=== PATIENT | male | born 1950 | race Caucasian/White ===

== ENCOUNTER 2021-01-03 08:49 | Inpatient (IN) | payer OTHER ==
[~2021-01-03] VITALS: Ht 170.2 cm; Wt 63.6 kg
[~2021-01-03 08:49] MED LIST: AMLO-489 PO; ASPI81CH59 PO; FLUT1AER3 IN; NAPR220C PO; ZOLP10TA6 PO
[2021-01-03] MEDS ORDERED: ceFAZolin 1GM/50ML 100 ML IV ONE (09:06)
[2021-01-03] MEDS: BUPIVACAINE 0.25% INJ 50ML VIAL ONE ×2 (11:12→14:10)
[2021-01-03] MEDS: BACITRACIN INJ 50000 UNIT VIAL ONE ×2 (11:13→14:00)
[2021-01-03] MEDS ORDERED: VANCOMYCIN HCL 1000 MG VL ONE (11:14)
[2021-01-03] MEDS ORDERED: KETOROLAC TROMETH 30 MG/ML 1ML VIAL ONE (11:17)
[2021-01-03] MEDS ORDERED: MORPHINE SULF(PF) 0.5MG/ML 10ML VIAL ONE (11:17)
[2021-01-03] MEDS ORDERED: TRANEXAMIC ACID 20 ML ONE (11:30)
[2021-01-03] MEDS ORDERED: MIDAZOLAM HCL 1MG/1ML-2 ML VIAL ONE (11:31)
[2021-01-03] MEDS ORDERED: MEPERIDINE HCL (50 MG/ML) 1 ML VIAL ONE (11:31)
[2021-01-03] MEDS ORDERED: fentaNYL CITRATE 100 MCG/2 ML VL ONE ×2 (11:31→13:05)
[2021-01-03] MEDS ORDERED: fentaNYL CITRATE 5 ML ONE (11:31)
[2021-01-03] MEDS ORDERED: ETOMIDATE (2MG/ML) 20ML VIAL IV ONE (12:13)
[2021-01-03] MEDS ORDERED: DexAMETHasone SOD PHOS 10MG/1ML VIAL INJ ONE (12:13)
[2021-01-03] MEDS ORDERED: MIDAZOLAM HCL 1MG/1ML-2 ML VIAL IV PRN (12:30)
[2021-01-03] MEDS ORDERED: HYDROmorphone HCL 2 MG/ML VL IV PRN ×2 (12:30→14:15)
[2021-01-03] MEDS ORDERED: LABETALOL HCL 5 MG/ML 4ML SYRINGE IV PRN (12:30)
[2021-01-03] MEDS ORDERED: MORPHINE SULFATE 4 MG/ML SYR/VIAL IV PRN (12:30)
[2021-01-03] MEDS ORDERED: ONDANSETRON HCL 4 MG/2 ML VIAL IV PRN ×2 (12:30→14:15)
[2021-01-03] MEDS ORDERED: ONDANSETRON HCL 4 MG/2 ML VIAL ONE (12:50)
[2021-01-03] MEDS ORDERED: NITROGLYCERIN 0.4 MG SL TAB SL PRN ×3 (14:15→18:00)
[2021-01-03] MEDS ORDERED: HYDROcodone-ACET 5/325MG TAB PO PRN (14:15)
[2021-01-03] MEDS ORDERED: HYDROcodone-ACET 10/325MG TAB PO PRN (14:15)
[2021-01-03] MEDS ORDERED: MORPHINE SULF INJ 2 MG/ML SYRINGE 1ML IV PRN ×3 (14:15→18:00)
[2021-01-03] MEDS: LACTATED RINGER'S 1,000 ML IV SCH (14:30)
[2021-01-03] MEDS: ePHEDrine SULFATE 50 MG/ML AMP IV PRN ×2 (16:32→17:47)
[2021-01-03] MEDS ORDERED: HYDROCORTISONE SOD SUCC 100 MG/2ML INJ VIAL IV ONE (17:15)
[2021-01-03] MEDS: NOREPINEPHRINE 8 MG/250ML KIT 250 ML IV SCH (18:27)
[2021-01-03] MEDS: ceFAZolin 1GM/50ML 50 ML IV SCH ×2 (18:50→22:47)
[2021-01-03 20:15] VITALS: BP 122/71
[2021-01-03] MEDS: DOCUSATE SOD 100 MG CAP PO SCH (22:48)
[2021-01-03 23:15] VITALS: BP 114/61
[2021-01-03 23:30] VITALS: BP 112/56
[2021-01-03 23:45] VITALS: BP 105/53
[2021-01-04] VITALS (53 sets, daily range): BP systolic 101–157; BP diastolic 42–91
[2021-01-04] MEDS: LACTATED RINGER'S 1,000 ML IV SCH ×2 (01:25→09:05)
[2021-01-04] MEDS: ceFAZolin 1GM/50ML 50 ML IV SCH (02:34)
[2021-01-04 04:01] LABS: Hematocrit 40.4 % (41.0-53.0); Hemoglobin 13.7 g/dL (13.5-17.5)
[2021-01-04 04:19] LABS: BUN/Creatinine Ratio 13.3; Potassium 5.3 mmol/L (3.5-5.1)
[2021-01-04] MEDS: NOREPINEPHRINE 8 MG/250ML KIT 250 ML IV SCH (08:58)
[2021-01-04] MEDS: DOCUSATE SOD 100 MG CAP PO SCH (09:41)
== END 2021-01-04 14:20 | disposition home or self-care (01) | DRG 483 ==
LOC: SUR 08:49 → EDSTATUS 10:00 → EDSEX 10:00 → OVERFLOW 14:11 → ICU WEST 21:53
PROVIDERS: ADMIT Orthopaedic Surgery Sports Medicine; ATTEND Orthopaedic Surgery Sports Medicine
PROC: 0RRK00Z Replacement of Left Shoulder Joint with Reverse Ball and Socket Synthetic Substitute, Open Approach (ICD-10-PCS; principal; 2021-01-03 11:39)
DX: M75.102 Unspecified rotator cuff tear or rupture of left shoulder, not specified as traumatic (principal); Z20.822 Contact with and (suspected) exposure to COVID-19; I12.9 Hypertensive chronic kidney disease with stage 1 through stage 4 chronic kidney disease, or unspecified chronic kidney disease; J44.9 Chronic obstructive pulmonary disease, unspecified; G89.29 Other chronic pain; M13.812 Other specified arthritis, left shoulder; N18.30 Chronic kidney disease, stage 3 unspecified; Z98.1 Arthrodesis status; Z87.891 Personal history of nicotine dependence; Z82.49 Family history of ischemic heart disease and other diseases of the circulatory system; Z79.899 Other long term (current) drug therapy; I95.9 Hypotension, unspecified
CPT/HCPCS: 36415; 73020; 80048; 85014; 85018; 86850; 86870; 86900; 86901; 87081; G0378; J0690; J1100; J1885; J2250; J2405; J3490

== ENCOUNTER 2025-04-01 12:45 | Inpatient (IN) | payer OTHER ==
[2025-03-31 23:21] VITALS: PULSE 94; RESP 18; O2SAT 98
[~2025-04-01] VITALS: Ht 170.2 cm; Wt 63.0 kg
[~2025-04-01 12:45] MED LIST changes: -AMLO-489 PO; +AMLO1TAB22 PO
[2025-04-01] MEDS: FUROSEMIDE 40 MG/4 ML VIAL IV ONE (13:00)
--- NOTE | 2025-04-01 13:35 | DVH ---
AP portable chest CLINICAL INDICATION: sob Comparison: 04/01/2025 FINDINGS: Heart size is normal. No infiltrates or effusions. No bony thoracic abnormalities. IMPRESSION: 1. No acute cardiopulmonary pathology
[2025-04-01] MEDS: methylPREDNISolone SOD SUCC 125 MG/2 ML VL IV ONE (13:38)
--- NOTE | 2025-04-01 13:38 | ED.PDOC ---
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 I spoke with the patient's auction clerk, who felt the patient required hospitalization due to oxygen saturation that was in the 70s on room air at his office today. Pt states has been increasingly short of breath for the past month, and uses 3 L of home O2. He also notes productive cough. Pt now in the ED, presents pale in complexion and had vitals checked with noted 02 sat in the 60's on room air and pt was placed on 3 L via nc. Pt also has noted BP of 94/59, RR 24 but otherwise temp is 98.0F and heart rate of 74. Pt in the ED, states he is having cough with yellow phlegm and has been shortness of breath while ambulating very short distances at home home. Pt also notes lower extremity and hand edema. Pt denies chest pain, fever, or sick contacts. Pt denies any other symptoms at this time. Chief Complaint: Shortness of Breath Time Seen by MD: 13:00 Reviewed notes: Medications, Allergies Information Source: Patient Mode of Arrival: Ambulatory Past Medical History PAST MEDICAL HISTORY: CHF, COPD, HTN Surgical History (Other): Cervical spine and pelvis surgery Family History Family History: Reviewed,noncontributory to illness Social History Smoker: Cigarettes Alcohol: Denies ETOH Use Drugs: Denies Drug Use Lives In: Home Constitutional: denies: chills, diaphoresis, fatigue, fever, malaise, sweats, weakness, others EENTM: denies: blurred vision, double vision, ear bleeding, ear discharge, ear drainage, ear pain, ear ringing, eye pain, eye redness, hearing loss, mouth pain, mouth swelling, nasal discharge, nose bleeding, nose congestion, nose pain, photophobia, tearing, throat pain, throat swelling, voice changes, others Respiratory: reports: cough, shortness of breath, SOB with excertion; denies: hemoptysis, orthopnea, SOB at rest, stridor, wheezing, others Cardiovascular: denies: chest pain, dizzy spells, diaphoresis, Dyspnea on exertion, edema, irregular heart beat, left arm pain, lightheadedness, palpitations, PND, syncope, others Gastrointestinal: denies: abdomen distended, abdominal pain, blood streaked bowels, constipated, diarrhea, dysphagia, difficulty swallowing, hematemesis, melena, nausea, poor appetite, poor fluid intake, rectal bleeding, rectal pain, vomiting, others Genitourinary: denies: burning, dysuria, flank pain, frequency, hematuria, incontinence, penile discharge, penile sore, pain, testicle pain, testicle swell ing, urgency, others Neurological: denies: dizziness, fainting, headache, left sided numbness, left sided weakness, numbness, paresthesia, pre-existing deficit, right sided numbness, right sided weakness, seizure, speech problems, tingling, tremors, weakness, others Musculoskeletal: denies: back pain, gout, joint pain, joint swelling, muscle pain, muscle stiffness, neck pain, others Integumetry: denies: bruises, change in color, change in hair/nails, dryness, laceration, lesions, lumps, rash, wounds, others Allergic/Immunocompromised: denies: Difficulty Healing, Frequent Infections, Hives, Itching, others Hematologic/Lymphatic: denies: anemia, blood clots, easy bleeding, easy bruising, swollen glands, others Endocrine: denies: excessive hunger, excessive sweating, excessive thirst, excessive urination, flushing, intolerance to cold, intolerance to heat, unexplained weight gain, unexplained weight loss, others Psychiatric: denies: anxiety, bipolar disorder, depression, hopeless, panic disorder, schizophrenia, sleepless, suicidal, others All Other Systems: Reviewed and Negative Physical Exam General Appearance: Mild Distress HEENT: Other (Pupils and face symmetric. dry mucous membranes.) Neck: Full Range of Motion, Normal Inspection Respiratory: No Accessory Muscle Use, Respiratory Distress (Mild), Rhonchi, Wheezing, Other (Productive sounding cough) Cardiovascular: No JVD, Regular Rate/Rhythm Breast Exam: Deferred Gastrointestinal: Non Tender, Soft Genitalia: Deferred Pelvic: Deferred Rectal: Deferred Extremities: Normal range of motion, Non-tender, Pedal edema Neurologic: Alert (Oriented x4), Normal Affect, Normal Mood, Other (No gross focal deficit) Cerebellar Function: NOT DONE Reflexes: NOT DONE Skin: Dry, Pallor, Warm Lymphatic: NOT DONE EKG EKG : Comments Sinus rhythm, rate 69, normal MT and QRS intervals, QTC 502, supraventricular bigeminy, possible old anteroseptal infarct, anteroseptal and lateral T-wave inversion with other nonspecific T change Was a procedure done? Was a procedure done?: No Differential Dx Differential Diagnosis: Bronchitis, CHF, COPD, Myocardial infarction, Pneumonia, Pulmonary Embolism, Respiratory Distress, URI X-Ray, Labs, Meds, VS Vital Signs Date Time Temp Pulse Resp B/P (MAP) Pulse Ox O2 Delivery O2 Flow Rate FiO2 04/01/25 18:00 80 15 112/77 (89) 90 04/01/25 16:00 76 04/01/25 16:00 76 17 110/69 (83) 90 04/01/25 14:25 74 17 96 Simple Mask* 8 60 04/01/25 14:00 70 11 111/72 (85) 99 04/01/25 13:03 69 04/01/25 12:49 98.0 74 24 94/59 62 98.0 Lab Test 04/01/25 16:43 04/01/25 14:57 04/01/25 14:01 04/01/25 13:47 Range/Units Troponin I High Sensitivity 24 27 27 </=54 ng/L Urine Color Yellow Yellow Urine Clarity Clear Clear Urine pH 5.5 5.0-9.0 Urine Specific [place] 1.020 1.001-1.035 Urine Protein Trace H Negative Urine Ketones Negative Negative Urine Blood Negative Negative /uL Urine Nitrite Negative Negative Urine Bilirubin Negative Negative Urine Urobilinogen Normal Negative mg/dL Urine Leukocyte Esterase 1+ Negative /uL Urine RBC 2 0 - 3 /hpf Urine Microscopic WBC 7 H 0-3 /HPF Urine Squamous Epithelial Cells None seen <5 /hpf Urine Bacteria Few H None Seen /hpf Urine Mucus Few None Seen Urine Glucose Normal Normal mg/dL White Blood Count 8.0 4.4-10.8 10^3/uL Red Blood Count 4.97 4.5-5.90 10^6/uL Hemoglobin 15.0 13.5-17.5 g/dL Hematocrit 45.5 41.0-53.0 % Mean Corpuscular Volume 91.4 80.0-100.0 fL Mean Corpuscular Hemoglobin 30.1 28.0-32.0 pg Mean Corpuscular Hemoglobin Concent 32.9 32.0-36.0 g/dL Red Cell Distribution Width 17.4 H 11.8-14.3 % Platelet Count 301 140-450 10^3/uL Mean Platelet Volume 7.9 6.9-10.8 fL Neutrophils (%) (Auto) 71.0 37.0-80.0 % Lymphocytes (%) (Auto) 15.1 10.0-50.0 % Monocytes (%) (Auto) 11.2 0.0-12.0 % Eosinophils (%) (Auto) 1.2 0.0-7.0 % Basophils (%) (Auto) 1.5 0.0-2.0 % Neutrophils # (Auto) 5.7 1.6-8.6 10 ^3/uL Lymphocytes # (Auto) 1.2 0.4-5.4 10 ^3/uL Monocytes # (Auto) 0.9 0-1.3 10 ^3/uL Eosinophils # (Auto) 0.1 0-0.8 10 ^3/uL Basophils # (Auto) 0.1 0-0.2 10 ^3/uL Nucleated Red Blood Cells 0.2 % Sodium Level 142 136-145 mmol/L Potassium Level 5.4 H 3.5-5.1 mmol/L Chloride Level 107 98-107 mmol/L Carbon Dioxide Level 28 20-31 mmol/L Anion Gap 7 5-15 Blood Urea Nitrogen 36 H 9-23 mg/dL Creatinine 1.72 H 0.700-1.30 mg/dL Glomerular Filtration Rate Calc 41 >90 mL/min BUN/Creatinine Ratio 20.9 H 10.0-20.0 Serum Glucose 87 74-106 mg/dL Calcium Level 8.9 8.7-10.4 mg/dL B-Type Natriuretic Peptide 2313.81 0-100 pg/mL Current Medications Medications (Trade) Dose Ordered Sig/Stanley Route Start Time Stop Time Status Last Admin Albuterol (Ventolin Medneb) 5 mg ONCE ONCE NEB 04/01/25 13:00 04/01/25 13:01 DC 04/01/25 14:19 Ipratropium [place] (Atrovent Medneb) 0.5 mg ONCE ONCE NEB 04/01/25 13:00 04/01/25 13:01 DC 04/01/25 14:19 Methylprednisolone Sodium Succinate (Solu Medrol) 125 mg ONCE ONCE IV 04/01/25 13:00 04/01/25 13:01 DC 04/01/25 13:38 Zirconium Oxide (Lokelma) 10 gm ONCE ONCE PO 04/01/25 15:00 04/01/25 15:01 DC 04/01/25 15:[address] [address] Ph: [phone] DIAGNOSTIC IMAGING Diagnostic Imaging Report : [id number] Signed PATIENT: ZACK OSEGUERA ACCT: [id number] UNIT: [id number] : 1950 LOC: ER ROOM / BED: / AGE / SEX: 74 / M ADM STATUS: REG ER SERVICE 1254 ORDERING PHYSICIAN: SUZANNE MASSEY MD PROCEDURE(s): CXRP - CHEST PORTABLE REASON: sob ORDER NUMBER(s): [id number], ACCESSION NUMBER(s): [id number] AP portable chest CLINICAL INDICATION: sob Comparison: 04/01/2025 FINDINGS: Heart size is normal. No infiltrates or effusions. No bony thoracic abnormalities. IMPRESSION: 1. No acute cardiopulmonary pathology ATED BY: OSMANY MORALES MD DICTATED DATE/TIME: 04/01/25 133 SIGNED BY: OSMANY MORALES MD SIGNED DATE/TIME: 04/01/25 133 CC: X-Ray, Labs, Meds, VS Comment 74-year-old male with oxygen-dependent COPD, CHF and hypertension referred by auction clerk for hospital admission due to shortness of breath and hypoxia Vitals remarkable for respiratory rate 24, BP 94/59, oxygen saturation 62% on room air, profoundly hypoxic Exam remarkable for bilateral rhonchi and wheezes and mild respiratory distress Rhythm strip independently interpreted by me: Sinus rhythm, rate 69 with supraventricular bigeminy Chest x-ray IMPRESSION: 1. No acute cardiopulmonary pathology CBC unremarkable, basic metabolic panel remarkable for potassium 5.4, BUN 36, creatinine 1.72, BNP 2313.81, troponin negative Patient treated with the following in the ED: Albuterol 5 mg/Atrovent 0.5 mg nebulized, Solu-Medrol 125 mg IV, Lasix 40 mg IV, Lokelma 10 g p.o. On re-evaluation, patient's respiratory status has improved, and he is not in respiratory distress. He is saturating 96% on 8 L mask. Plan is to admit the patient for respiratory support, pulmonology evaluation and electrolyte correction. Time of 1ST Reevaluation: 15:02 Reevaluation 1ST: Improved Patient Education/Counseling: Diagnosis, Treatment Family Education/Counseling: No Family Present SEPSIS Sepsis Screen Date sepsis recognized/suspect: Apr 01, 2025 Time Sepsis recognized/suspect: 1251 Recent Procedure: No On Antibiotic Therapy: No Respiratory Rate >20: Yes Heart Rate >90: No Temp<36 C (96.8 F) or >38.3 C: No SBP <90 or MAP <65 mmHG: No New Acute Mental Status Change: No Is the patient on CPAP, BIPAP,: No SEPSIS EXCLUSION NOTE: Sepsis Exclusion Note: Patient presents with SIRS criteria, but the SIRS response is attributed to [ dyspnea/COPD exacerbation ], not a suspected infection. Sepsis bundle is not initiated at this time, due to this reason. Further management will focus on the treatment of the above condition (s). Physician Orders Chest Portable (04/01/25 12:54) Electrocardigram (04/01/25 12:54) 2 Large Bore Ivs (20mg Or Larg (04/01/25 12:58) Vital Signs Date Time Temp Pulse Resp B/P (MAP) Pulse Ox O2 Delivery O2 Flow Rate FiO2 04/01/25 18:00 80 15 112/77 (89) 90 04/01/25 16:00 76 04/01/25 16:00 76 17 110/69 (83) 90 04/01/25 14:25 74 17 96 Simple Mask* 8 60 04/01/25 14:00 70 11 111/72 (85) 99 04/01/25 13:03 69 04/01/25 12:49 98.0 74 24 94/59 62 98.0 Laboratory Tests Test 04/01/25 13:47 White Blood Count 8.0 10^3/uL (4.4-10.8) Medications Medications Dose Ordered Sig/Stanley Route Start Time Stop Time Status Last Admin Dose Admin Albuterol 5 mg ONCE ONCE NEB 04/01/25 13:00 04/01/25 13:01 DC 04/01/25 14:19 Ipratropium [place] 0.5 mg ONCE ONCE NEB 04/01/25 13:00 04/01/25 13:01 DC 04/01/25 14:19 Methylprednisolone Sodium Succinate 125 mg ONCE ONCE IV 04/01/25 13:00 04/01/25 13:01 DC 04/01/25 13:38 Zirconium Oxide 10 gm ONCE ONCE PO 04/01/25 15:00 04/01/25 15:01 DC 04/01/25 15:16 Departure 1 Departure Time of Disposition: 15:02 Impression: Primary Impression: Acute hypoxic respiratory failure Additional Impressions: COPD with acute exacerbation CHF exacerbation Qualified Codes: I50.9 - Heart failure, unspecified Hyperkalemia Disposition: ADMITTED INPATIENT Admit to: Tele Condition: Guarded Critical Care Note Critical Care Time?: Yes (45 min-critical care time only) Critical care comment: Critical care time including multiple bedside re-evaluations, review of lab and imaging studies, and discussion of the case with the admitting provider. Patient is high risk for respiratory, hemodynamic and/or metabolic decompensation. Stability Stability form required: No Heart Score Heart Score: Heart Score Response (Comments) Value History N/A 0 EKG N/A 0 Age N/A 0 Risk Factors N/A 0 Troponin N/A 0 Total 0 I personally scribed for SUZANNE MASSEY MD ([email or web address]) on 04/01/25 at 13:37. Electronically submitted by Luiz Sloan ([email or web address]). I personally scribed for SUZANNE MASSEY MD ([email or web address]) on 04/01/25 at 13:40. Electronically submitted by Luiz Sloan ([email or web address]). SUZANNE MASSEY MD Apr 01, 2025 13:37
[2025-04-01 14:17] LABS: Hematocrit 45.5 % (41.0-53.0); Hemoglobin 15.0 g/dL (13.5-17.5); Mean Corpuscular Hemoglobin 30.1 pg (28.0-32.0); Mean Corpuscular Volume 91.4 fL (80.0-100.0); Nucleated Red Blood Cells % 0.2 %
[2025-04-01] MEDS: ALBUTEROL SULF 2.5 MG/0.5ML(0.5%) NEB SOLN NEB ONE (14:19)
[2025-04-01] MEDS: IPRATROPIUM BROM 0.5 MG/2.5ML INH SOL NEB ONE (14:19)
[2025-04-01 14:20] LABS: Urine Protein, UAD TRACE (Negative)
[2025-04-01 14:24] LABS: Chloride 107 mmol/L (98-107); Sodium 142 mmol/L (136-145)
[2025-04-01 14:25] VITALS: PULSE 74; RESP 17; O2SAT 96
[2025-04-01 14:25] LABS: Anion Gap 7 (5-15); Calcium 8.9 mg/dL (8.7-10.4); Carbon Dioxide 28 mmol/L (20-31); Potassium 5.4 mmol/L (3.5-5.1)
[2025-04-01 14:30] LABS: BUN/Creatinine Ratio 20.9 (10.0-20.0); Glucose 87 mg/dL (74-106)
[2025-04-01 14:31] LABS: Blood Urea Nitrogen 36 mg/dL (9-23)
[2025-04-01] MEDS: SODIUM ZIRCONIUM CYCL 10 GM PAK PO ONE (15:16)
[2025-04-01 19:30] VITALS: PULSE 87; RESP 18; O2SAT 95
[2025-04-01] MEDS ORDERED: MORPHINE SULFATE INJ 2 MG/ml SYRG IV PRN (21:00)
[2025-04-01] MEDS ORDERED: ONDANSETRON HCL 4 MG/2 ML VIAL IV PRN (21:00)
[2025-04-01] MEDS ORDERED: HYDROcodone-ACET 5/325MG TAB PO PRN (21:00)
[2025-04-01] MEDS ORDERED: NITROGLYCERIN 0.4 MG SL TAB SL PRN (21:00)
[2025-04-01] MEDS ORDERED: ACETAMINOPHEN 325 MG TAB PO PRN (21:00)
[2025-04-01 21:25] VITALS: BP 102/60; PULSE 87; RESP 18; TEMP 97.9; O2SAT 92
[2025-04-01 21:25] LABS: Base Excess -2.6 mmol/L (-2.0-3.0)
[2025-04-01 21:41] LABS: Sodium 141 mmol/L (136-145)
[2025-04-01 21:42] LABS: Anion Gap 10 (5-15); Calcium 8.8 mg/dL (8.7-10.4); Carbon Dioxide 24 mmol/L (20-31)
[2025-04-01 21:47] LABS: BUN/Creatinine Ratio 20.0 (10.0-20.0)
[2025-04-01 21:57] LABS: Blood Urea Nitrogen 33 mg/dL (9-23); Chloride 107 mmol/L (98-107); Glucose 122 mg/dL (74-106); Potassium 5.2 mmol/L (3.5-5.1)
--- NOTE | 2025-04-01 22:03 | DVHINCON2 ---
Date of service: Apr 01, 2025 Referring Physician Sheila Ren NP Reason for Consultation Acute hypoxic respiratory failure and COPD exacerbation. 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 Patient reports he had room air 02 saturations 60-70's. He has not been using his oxygen at 3L [place] for the past 7 months, reports he had a cigarette couple days ago. Per patient, he does not use his oxygen concentrator because he could not afford the electricity bill. Denies any headaches, chest pain, nausea, vomiting, abdominal pain or symptoms. Patient was admitted for further care. Pulmonary consultation is requested for evaluation and management of acute hypoxic respiratory failure and COPD exacerbation. Review of Systems: 14-point review of systems negative unless otherwise noted above. Past Medical History: COPD, hypertension, CHF Past Surgical History: None Medications: Reviewed. Allergies: No known drug allergies. Family History: No family history of premature CAD. No family history of lung disorders. Social History: Former smoker, <1 pack per day. No alcohol or illicit drug use. Allergies: Coded Allergies: NO KNOWN ALLERGIES (Unverified , 12/29/20) Home Meds Active Scripts Ipratropium-Albuterol (Ipratropium [place]/Albut) 1 Sylvia Sylvia, 1 SYLVIA IN TID, #30 ML Prov:KAITY PICKARD MD 04/03/25 Prednisone (Prednisone) 20 Mg Tab, 20 MG PO BID, #10 MG Prov:KAITY PICKARD MD 04/03/25 Cefdinir (Cefdinir) 300 Mg Cap, 1 CAP PO BID, #14 CAP Prov:KAITY PICKARD MD 04/03/25 Reported Medications Famotidine (PEPCID TABLET) 20 Mg Tb, 20 MG PO DAILY, TAB 04/02/25 Trazodone Hcl (Trazodone Hcl) 50 Mg Tab, 0.5 TAB PO QHSP PRN for FOR INSOMNIA 04/02/25 Albuterol Sulfate (Albuterol Sulfate Hfa) 108 Mcg/Act Aer, 2 PUFF INH PRN for SHORTNESS OF BREATH 04/02/25 Aibaihthnvz-Zfvcftjpkibg-Vendu (Trelegy Ellipta 100-62.5-25 Mcg/INH) 1 Aer Aer, 1 AER IN DAILY, AER 12/29/20 Amlodipine Besylate (Amlodipine Besylate) 5 Mg Tab, 1 TAB PO DAILY, #30 TAB 0 Refills 12/29/20 Current Medications Current Medications Medications (Trade) Dose Ordered Sig/Stanley Route PRN Reason Start Time Stop Time Status Last Admin Nitroglycerin (Ntrostat Sublingual) 0.4 mg Q5MINP PRN SL FOR CHEST PAIN 04/01/25 21:00 Morphine Sulfate 2 mg Q30M PRN IV FOR CHEST PAIN 04/01/25 21:00 Furosemide (Lasix Injection) 40 mg DAILY IV 04/02/25 10:00 Ipratropium [place] (Atrovent Medneb) 0.5 mg Q6HR NEB 04/02/25 00:00 Methylprednisolone Sodium Succinate (Solu Medrol) 40 mg BID IV 04/01/25 22:00 Ceftriaxone Sodium 50 ml @ 100 mls/hr DAILY IV 04/01/25 21:42 Ondansetron HCl (Zofran) 4 mg Q6HP PRN IV NAUSEA / VOMITING 04/01/25 21:00 Enoxaparin Sodium (Lovenox) 40 mg DAILY SC 04/02/25 10:00 Acetaminophen/ Hydrocodone Bitart ([place] 5/325MG Tab) 1 tab Q6HPRN PRN PO MODERATE PAIN (4-6 PAIN SCALE) 04/01/25 21:00 Acetaminophen (Tylenol Tablet) 650 mg Q6HPRN PRN PO PAIN SCALE 1-3 OR TEMP>100.4 04/01/25 21:00 Pantoprazole Sodium (Protonix) 40 mg DAILY IV 04/02/25 10:00 Albuterol (Ventolin Medneb) 2.5 mg Q4HPRN PRN NEB SHORTNESS OF BREATH 04/01/25 21:00 Vital Signs Vital Signs Date Time Temp Pulse Resp B/P (MAP) Pulse Ox O2 Delivery O2 Flow Rate FiO2 04/01/25 20:30 97.9 87 16 102/60 (74) 95 97.9 04/01/25 19:30 Simple Mask* 8 60 Physical Exam Gen.: Patient lying in bed in no apparent distress. On supplemental oxygen. Head: Normocephalic, atraumatic. Eyes: EOMI/PERRLA. Ears: Normal hearing. Normal anatomy. Neck/trachea: Trachea midline, supple. Nose: Normal external anatomy. Mouth: Moist mucous membranes. Chest: Decreased air entry bilaterally. No wheezing or rhonchi. Cardiovascular: Positive S1, positive S2. Regular rate and rhythm. Abdomen: Positive bowel sounds in all 4 quadrants. Soft, non-tender, non- distended. : Deferred. Rectal: Deferred. Skin: Warm, dry. Intact. Extremities: 2+ radial pulses bilaterally. No lower extremity edema. Neuro: Awake, alert, oriented x3. No gross motor or sensory deficits. Cranial nerves II through XII intact. Gait not assessed. Labs/Diagnostic Data Labs Test 04/01/25 21:25 04/01/25 21:14 04/01/25 16:43 04/01/25 14:01 Range/Units Sodium Level 141 136-145 mmol/L Potassium Level 5.2 H 3.5-5.1 mmol/L Chloride Level 107 98-107 mmol/L Carbon Dioxide Level 24 20-31 mmol/L Anion Gap 10 5-15 Blood Urea Nitrogen 33 H 9-23 mg/dL Creatinine 1.65 H 0.700-1.30 mg/dL Glomerular Filtration Rate Calc 43 >90 mL/min BUN/Creatinine Ratio 20.0 10.0-20.0 Serum Glucose 122 H 74-106 mg/dL Calcium Level 8.8 8.7-10.4 mg/dL Blood Gas Specimen Type Arterial Blood Gas Sample Site Right radial Blood Gas Patient Temperature 37.0 Arterial Blood Date Drawn [id number] Arterial Blood pH 7.304 L 7.350-7.450 Arterial Blood Partial Pressure CO2 50.2 H 35.0-48.0 mmHg Arterial Blood Partial Pressure O2 76.6 L 83.0-108.0 mmHg Arterial Blood HCO3 24.4 21.0-28.0 mmol/L Arterial Blood Oxygen Saturation 93.8 L 94.0-98.0 % Arterial Blood Base Excess -2.6 L -2.0-3.0 mmol/L Arterial Blood Oxyhemoglobin 91.0 L 94.0-98.0 % Arterial Blood Carboxyhemoglobin 2.3 H 0.5-1.5 % Arterial Blood Methemoglobin 0.7 0.0-1.5 % Rafael Test Modified Blood Gas Total Hemoglobin 15.20 13.5-17.5 g/dL Blood Gas Liter Flow 3.00 Blood Gas Modality Nasal cannula FiO2 % 32.0 Troponin I High Sensitivity 24 </=54 ng/L Urine Color Yellow Yellow Urine Clarity Clear Clear Urine pH 5.5 5.0-9.0 Urine Specific [place] 1.020 1.001-1.035 Urine Protein Trace H Negative Urine Ketones Negative Negative Urine Blood Negative Negative /uL Urine Nitrite Negative Negative Urine Bilirubin Negative Negative Urine Urobilinogen Normal Negative mg/dL Urine Leukocyte Esterase 1+ Negative /uL Urine RBC 2 0 - 3 /hpf Urine Microscopic WBC 7 H 0-3 /HPF Urine Squamous Epithelial Cells None seen <5 /hpf Urine Bacteria Few H None Seen /hpf Urine Mucus Few None Seen Urine Glucose Normal Normal mg/dL Test 04/01/25 13:47 Range/Units White Blood Count 8.0 4.4-10.8 10^3/uL Red Blood Count 4.97 4.5-5.90 10^6/uL Hemoglobin 15.0 13.5-17.5 g/dL Hematocrit 45.5 41.0-53.0 % Mean Corpuscular Volume 91.4 80.0-100.0 fL Mean Corpuscular Hemoglobin 30.1 28.0-32.0 pg Mean Corpuscular Hemoglobin Concent 32.9 32.0-36.0 g/dL Red Cell Distribution Width 17.4 H 11.8-14.3 % Platelet Count 301 140-450 10^3/uL Mean Platelet Volume 7.9 6.9-10.8 fL Neutrophils (%) (Auto) 71.0 37.0-80.0 % Lymphocytes (%) (Auto) 15.1 10.0-50.0 % Monocytes (%) (Auto) 11.2 0.0-12.0 % Eosinophils (%) (Auto) 1.2 0.0-7.0 % Basophils (%) (Auto) 1.5 0.0-2.0 % Neutrophils # (Auto) 5.7 1.6-8.6 10 ^3/uL Lymphocytes # (Auto) 1.2 0.4-5.4 10 ^3/uL Monocytes # (Auto) 0.9 0-1.3 10 ^3/uL Eosinophils # (Auto) 0.1 0-0.8 10 ^3/uL Basophils # (Auto) 0.1 0-0.2 10 ^3/uL Nucleated Red Blood Cells 0.2 % B-Type Natriuretic Peptide 2313.81 0-100 pg/mL Assessment Impression: Acute hypoxic respiratory failure Dependence on supplemental oxygen Acute COPD exacerbation Acute CHF exacerbation Hyperkalemia Hx of nicotine dependence Plan: Supplemental oxygen Titrate to keep O2 sats above 92%. Chest x-ray shows no acute abnormalities. Continue bronchodilators. Continue antibiotics IV steroids Follow up Echocardiogram Follow up Cardiology recommendations. Maintain euvolemia Monitor renal function. Monitor electrolytes. Supplement as necessary. Monitor potassium d/t hyperkalemia - K of 5.4 Monitor ins and outs. DVT prophylaxis. Prognosis: Poor given patient's multiple co-morbidities. Rest of plan per hospitalist and other consultants. Thank you, MARTHA Ren, for allowing me to participate in this patient's care. Further recommendations will depend on the patient's clinical course. Please do not hesitate to contact me if you have any questions or concerns. This medical document was created using an electronic medical record system with [employer] dictation system. Although these documentations are being carefully reviewed, there may still be some phonetic and typographical changes. The errors are purely typographical, due to imperfection on the software program, and do not reflect any compromise in the patient's medical care. Plan discussed with: Patient, Other (RN/MARTHA Ren/) CHRISSY PORTILLO MD Apr 01, 2025 22:03
[2025-04-01] MEDS: cefTRIAXone 1GM/50ML D5W 50 ML IV SCH (22:14)
[2025-04-01] MEDS: methylPREDNISolone SOD SUCC 40 MG/ML VL IV SCH (22:14)
[2025-04-01 23:13] VITALS: PULSE 90; RESP 18; O2SAT 96
[2025-04-01] MEDS: IPRATROPIUM BROM 0.5 MG/2.5ML INH SOL NEB SCH (23:13)
[2025-04-01] MEDS: ALBUTEROL SULF 2.5 MG/0.5ML(0.5%) NEB SOLN NEB PRN (23:13)
[2025-04-01 23:21] VITALS: PULSE 94; RESP 18; O2SAT 98
[2025-04-02] VITALS (18 sets, daily range): BP systolic 115–126; BP diastolic 62–67; PULSE 58–96; RESP 14–18; TEMP 97.9–98; O2SAT 93–100
--- NOTE | 2025-04-02 01:01 | DVHHP2 ---
Admitting Diagnosis: Acute Hypoxic Respiratory Failure, COPD Exacerbation, CHF exacerbation, UTI History of Present Illness History Source: Patient, Family Exam Limitations: No limitations HPI Mr. Vanessa Beckwith is a 74 yo male with known history of CHF, HTN, COPD , previous cigarette smoker who presents with shortness of breath referred from his Pulmonologists office for acute respiratory failure with hypoxia. Reported he had room air 02 saturations 60-70's. Patient reports he has not been using his oxygen at 3L [place] for the past 7 months, reports he had a cigarette couple days ago. Patient reports he does not use his oxygen concentrator because it increased his electricity bill which he could not afford. Patient denies any chest pain, nausea, vomiting, abdominal pain, headaches, dizziness, dysuria, hematuria. Patient admitted for further evaluation and treatment. Home Meds Reported Medications Zolpidem Tartrate (Zolpidem Tartrate) 10 Mg Tab, 1 TAB PO QPM, #30 TAB 0 Refills 12/29/20 Aspirin (Aspirin Low Dose) 81 Mg Chw, 1 TAB PO DAILY, #30 TAB 0 Refills 12/29/20 Naproxen Sodium (Aleve) 220 Mg Cap, 250 MG PO BID, CAP 12/29/20 Dynyowubfpz-Wqiqofecqzax-Qpjkr (Trelegy Ellipta 100-62.5-25 Mcg/INH) 1 Aer Aer, 1 AER IN DAILY, AER 12/29/20 Amlodipine Besylate (Amlodipine Besylate) 5 Mg Tab, 1 TAB PO DAILY, #30 TAB 0 Re fills 12/29/20 Past Medical History Cardiac: CHF, HTN Pulmonary: COPD Smoker: <1 pack per day Alocohol: None Drugs: None Lives with: With family (spouse) Domestic Violence: Neg Review of Systems Constitutional: No symptom reported Ears, Nose, & Throat: No symptom reported Eyes: No symptom reported Pulmonary/Respiratory: Dyspnea, Cough Cardiovascular: No symptom reported Gastrointestinal: No symptom reported Genitourinary: No symptom reported Musculoskeletal: No symptom reported Skin: No symptom reported Psychiatric: No symptom reported Endocrine: No symptom reported Hemotologic/Lymphatic: No symptom reported H&P Exam Vital Signs Vital Signs Date Time Temp Pulse Resp B/P (MAP) Pulse Ox O2 Delivery O2 Flow Rate FiO2 04/02/25 00:17 79 15 106/57 (73) 94 04/01/25 23:13 Nasal Cannula* 4 36 04/01/25 21:25 97.9 97.9 General Appeara: Well developed, Well nourished, Thin Head Exam: Normal inspection Neck Exam: Normal inspection, Non-tender, Normal alignment Eye Exam: bilateral eye Normal inspection, bilateral eye PERRL, bilateral eye EOMI Ear Exam: bilateral ear Auricle normal Nasal Exam: Normal inspection Mouth: Normal Inspection Pulmonary/Respiratory: Normal inspection, Decreased breath sounds, Other (barrel chest) Cardiovascular/Chest: Normal inspection, Regular rate, Normal Rhythm Peripheral Pulses: 2+ dorsalis pedis (R), 2+ dorsalis pedis (L), 2+ Radial (R), 2+ Radial (L) Abdominal Exam: Normal bowel sounds, Soft, No tenderness Rectal Exam: Deferred Back Exam: Normal inspection Male Genital Exam: Not done Tendon/ Neuro: Normal sensation, Normal motor function 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 Exam: Normal hearing, Normal speech, PERRL Neuro/Mental St: Alert, Oriented Appearance: Appropriate appearance, Appropriate insight Eye contact/ Speech: Cooperative, Good eye contact, Normal speech Thoughts/Psych: Normal thought pattern Skin Exam: Normal inspection, Warm/dry SEPSIS Sepsis Screen Date sepsis recognized/suspect: Apr 01, 2025 Time Sepsis recognized/suspect: 1251 Recent Procedure: No On Antibiotic Therapy: No Respiratory Rate >20: Yes Heart Rate >90: No Temp<36 C (96.8 F) or >38.3 C: No SBP <90 or MAP <65 mmHG: No New Acute Mental Status Change: No Is the patient on CPAP, BIPAP,: No Physician Orders Admit (04/01/25 20:58) *Consult / (04/01/25 20:58) Abg W/ Co-Ox (04/01/25 20:58) * Cardiology Consult (04/01/25 20:58) Echo 2d Mode Cardiac Dop (04/01/25 20:58) Basic Metabolic Panel (04/02/25 05:00) Basic Metabolic Panel (04/03/25 05:00) Basic Metabolic Panel (04/04/25 05:00) Complete Blood Count (04/02/25 05:00) Complete Blood Count (04/03/25 05:00) Complete Blood Count (04/04/25 05:00) Urine Bacterial Culture (04/01/25 20:58) Nitroglycerin Sublingual (Ntrostat Subli (04/01/25 21:00) Morphine Sulfate Injection (04/01/25 21:00) Stat Ekg For Chest Pain (04/01/25 20:58) Notify Of Changes From Base (04/01/25 20:58) Server Developer For 24 Hours (04/01/25 20:58) Emergency Dysrhythmia Protocol (04/01/25 20:58) Rhythm Strips Once Every Shift (04/01/25 20:58) Oxygen By Nasal Cannula (04/01/25 20:58) Furosemide Injection (Lasix Injection) (04/02/25 10:00) Ipratropium Medneb (Atrovent Medneb) (04/02/25 00:00) Methylprednisolone Sod Succ (Solu Medrol (04/01/25 22:00) Ondansetron Hcl (Zofran) (04/01/25 21:00) Enoxaparin Sodium (Lovenox) (04/02/25 10:00) Hydrocodone-Acet 5/325mg Tab ([place] 5/32 (04/01/25 21:00) Acetaminophen Tablet (Tylenol Tablet) (04/01/25 21:00) Pantoprazole (Protonix) (04/02/25 10:00) Albuterol Medneb (Ventolin Medneb) (04/01/25 21:00) Ceftriaxone 1gm/50ml D5w (Rocephin) (04/01/25 21:42) BIPAP (04/01/25 22:51) Abg W/ Co-Ox (04/01/25 06:00) Vital Signs Date Time Temp Pulse Resp B/P (MAP) Pulse Ox O2 Delivery O2 Flow Rate FiO2 04/02/25 00:17 79 15 106/57 (73) 94 04/02/25 00:00 84 04/01/25 23:21 94 18 98 04/01/25 23:13 90 18 96 04/01/25 23:13 96 Nasal Cannula* 4 36 04/01/25 23:13 96 Nasal Cannula 4.0 04/01/25 21:25 97.9 87 18 102/60 92 3.0 32 97.9 04/01/25 20:30 97.9 87 16 102/60 (74) 95 97.9 04/01/25 20:00 69 04/01/25 19:30 87 18 95 Simple Mask* 8 60 04/01/25 18:00 80 15 112/77 (89) 90 Laboratory Tests Test 04/01/25 13:47 White Blood Count 8.0 10^3/uL (4.4-10.8) Medications Medications Dose Ordered Sig/Stanley Route Start Time Stop Time Status Last Admin Dose Admin Albuterol 2.5 mg Q4HPRN PRN NEB 04/01/25 21:00 04/01/25 23:13 2.5 MG Albuterol 5 mg ONCE ONCE NEB 04/01/25 13:00 04/01/25 13:01 DC 04/01/25 14:19 5 MG Ceftriaxone Sodium 50 ml @ 100 mls/hr DAILY IV 04/01/25 21:42 04/01/25 22:14 100 MLS/HR Ipratropium [place] 0.5 mg ONCE ONCE NEB 04/01/25 13:00 04/01/25 13:01 DC 04/01/25 14:19 0.5 MG Ipratropium [place] 0.5 mg Q6HR NEB 04/02/25 00:00 04/01/25 23:13 0.5 MG Methylprednisolone Sodium Succinate 40 mg BID IV 04/01/25 22:00 04/01/25 22:14 40 MG Methylprednisolone Sodium Succinate 125 mg ONCE ONCE IV 04/01/25 13:00 04/01/25 13:01 DC 04/01/25 13:38 125 MG Zirconium Oxide 10 gm ONCE ONCE PO 04/01/25 15:00 04/01/25 15:01 DC 04/01/25 15:16 10 GM Labs/Xrays Labs Test 04/01/25 21:25 04/01/25 21:14 04/01/25 16:43 04/01/25 14:01 Range/Units Sodium Level 141 136-145 mmol/L Potassium Level 5.2 H 3.5-5.1 mmol/L Chloride Level 107 98-107 mmol/L Carbon Dioxide Level 24 20-31 mmol/L Anion Gap 10 5-15 Blood Urea Nitrogen 33 H 9-23 mg/dL Creatinine 1.65 H 0.700-1.30 mg/dL Glomerular Filtration Rate Calc 43 >90 mL/min BUN/Creatinine Ratio 20.0 10.0-20.0 Serum Glucose 122 H 74-106 mg/dL Calcium Level 8.8 8.7-10.4 mg/dL Blood Gas Specimen Type Arterial Blood Gas Sample Site Right radial Blood Gas Patient Temperature 37.0 Arterial Blood Date Drawn [id number] Arterial Blood pH 7.304 L 7.350-7.450 Arterial Blood Partial Pressure CO2 50.2 H 35.0-48.0 mmHg Arterial Blood Partial Pressure O2 76.6 L 83.0-108.0 mmHg Arterial Blood HCO3 24.4 21.0-28.0 mmol/L Arterial Blood Oxygen Saturation 93.8 L 94.0-98.0 % Arterial Blood Base Excess -2.6 L -2.0-3.0 mmol/L Arterial Blood Oxyhemoglobin 91.0 L 94.0-98.0 % Arterial Blood Carboxyhemoglobin 2.3 H 0.5-1.5 % Arterial Blood Methemoglobin 0.7 0.0-1.5 % Rafael Test Modified Blood Gas Total Hemoglobin 15.20 13.5-17.5 g/dL Blood Gas Liter Flow 3.00 Blood Gas Modality Nasal cannula FiO2 % 32.0 Troponin I High Sensitivity 24 </=54 ng/L Urine Color Yellow Yellow Urine Clarity Clear Clear Urine pH 5.5 5.0-9.0 Urine Specific [place] 1.020 1.001-1.035 Urine Protein Trace H Negative Urine Ketones Negative Negative Urine Blood Negative Negative /uL Urine Nitrite Negative Negative Urine Bilirubin Negative Negative Urine Urobilinogen Normal Negative mg/dL Urine Leukocyte Esterase 1+ Negative /uL Urine RBC 2 0 - 3 /hpf Urine Microscopic WBC 7 H 0-3 /HPF Urine Squamous Epithelial Cells None seen <5 /hpf Urine Bacteria Few H None Seen /hpf Urine Mucus Few None Seen Urine Glucose Normal Normal mg/dL Test 04/01/25 13:47 Range/Units White Blood Count 8.0 4.4-10.8 10^3/uL Red Blood Count 4.97 4.5-5.90 10^6/uL Hemoglobin 15.0 13.5-17.5 g/dL Hematocrit 45.5 41.0-53.0 % Mean Corpuscular Volume 91.4 80.0-100.0 fL Mean Corpuscular Hemoglobin 30.1 28.0-32.0 pg Mean Corpuscular Hemoglobin Concent 32.9 32.0-36.0 g/dL Red Cell Distribution Width 17.4 H 11.8-14.3 % Platelet Count 301 140-450 10^3/uL Mean Platelet Volume 7.9 6.9-10.8 fL Neutrophils (%) (Auto) 71.0 37.0-80.0 % Lymphocytes (%) (Auto) 15.1 10.0-50.0 % Monocytes (%) (Auto) 11.2 0.0-12.0 % Eosinophils (%) (Auto) 1.2 0.0-7.0 % Basophils (%) (Auto) 1.5 0.0-2.0 % Neutrophils # (Auto) 5.7 1.6-8.6 10 ^3/uL Lymphocytes # (Auto) 1.2 0.4-5.4 10 ^3/uL Monocytes # (Auto) 0.9 0-1.3 10 ^3/uL Eosinophils # (Auto) 0.1 0-0.8 10 ^3/uL Basophils # (Auto) 0.1 0-0.2 10 ^3/uL Nucleated Red Blood Cells 0.2 % B-Type Natriuretic Peptide 2313.81 0-100 pg/mL Assessment/Plan Problem List: (1) Acute hypoxic respiratory failure (2) COPD with acute exacerbation (3) CHF exacerbation (4) Hyperkalemia Plan This is 74 yo male with known history of CHF, HTN, COPD who presents with shortness of breath. Patient found to have 1. Acute hypoxic respiratory failure 2. CHF exacerbation 3. COPD exacerbation 4. Hyperkalemia 5. Acute Cystitis 6. Hypertension Plan Admit JOHN Pulmonology consultation, Bronchodilators, IV steroids, ABG Cardiology consultation , 2D echocardiogram, IV diuresis Monitor BMP IV antibiotics, urine culture Supplemental oxygen as needed Discussed all above with patient and patient daughter at bedside. Both verbalized agreement and understanding of care plan. All questions were answered. Plan discussed with: Patient, Other Code Visit Code Visit Total Time (mins): 45 Additional Comments Additional Comments Additional Comments Patient's chart is reviewed and discussed with the nurse practitioner. Patient is seen evaluated and admitted by ADA ACCOMMODATION CONSULTANT this morning. I agree with the her evaluation, documentation, assessment and care plan as outlined. Patient is seen and evaluated by me earlier today. BONNIE ONEIL NATURAL G[employer] SHOT[employer] DRILLER Apr 02, 2025 01:01 KAITY PICKARD MD Apr 02, 2025 21:18
[2025-04-02 05:55] LABS: Hematocrit 48.6 % (41.0-53.0); Hemoglobin 16.1 g/dL (13.5-17.5); Mean Corpuscular Hemoglobin 30.0 pg (28.0-32.0); Mean Corpuscular Volume 90.3 fL (80.0-100.0); Nucleated Red Blood Cells % 0.6 %
[2025-04-02 06:02] LABS: Potassium 5.0 mmol/L (3.5-5.1); Sodium 142 mmol/L (136-145)
[2025-04-02 06:03] LABS: Anion Gap 10 (5-15); Calcium 9.0 mg/dL (8.7-10.4); Carbon Dioxide 24 mmol/L (20-31)
[2025-04-02 06:08] LABS: BUN/Creatinine Ratio 19.6 (10.0-20.0)
[2025-04-02 06:09] LABS: Blood Urea Nitrogen 36 mg/dL (9-23); Chloride 108 mmol/L (98-107); Glucose 168 mg/dL (74-106)
[2025-04-02 08:13] LABS: Base Excess -2.4 mmol/L (-2.0-3.0)
[2025-04-02] MEDS: PANTOPRAZOLE 40 MG/10 ML VIAL INJ IV SCH (09:34)
[2025-04-02] MEDS: FUROSEMIDE 40 MG/4 ML VIAL IV SCH (09:35)
[2025-04-02] MEDS: ENOXAPARIN SOD 40 MG/0.4 ML SYRINGE SC SCH (09:36)
--- NOTE | 2025-04-02 12:32 | DVHPN2 ---
Progress Note - Dictate Date Seen: Apr 02, 2025 Has the PT tested + for MRSA If YES, has PT been informed?: No Medical Necessity Reason Pt with a Central, PICC or Fol: No vital signs Vital Sign Date Time Temp Pulse Resp B/P (MAP) Pulse Ox O2 Delivery O2 Flow Rate FiO2 04/02/25 12:06 76 17 97 04/02/25 12:02 Nasal Cannula* 2 28 04/02/25 09:35 122/55 04/02/25 06:00 98.0 98.0 Total Intake and Output 04/01/25 04/01/25 04/02/25 15:00 23:00 07:00 Intake Total 100 ml Balance 100 ml medications Current Medications Medications Dose Ordered Sig/Stanley Route Start Time Stop Time Status Last Admin Dose Admin Nitroglycerin 0.4 mg Q5MINP PRN SL 04/01/25 21:00 Morphine Sulfate 2 mg Q30M PRN IV 04/01/25 21:00 Furosemide 40 mg DAILY IV 04/02/25 10:00 04/02/25 09:35 40 MG Ipratropium [place] 0.5 mg Q6HR NEB 04/02/25 00:00 04/02/25 12:02 0.5 MG Methylprednisolone Sodium Succinate 40 mg BID IV 04/01/25 22:00 04/02/25 09:35 40 MG Ceftriaxone Sodium 50 ml @ 100 mls/hr DAILY IV 04/01/25 21:42 04/02/25 09:34 100 MLS/HR Ondansetron HCl 4 mg Q6HP PRN IV 04/01/25 21:00 Enoxaparin Sodium 40 mg DAILY SC 04/02/25 10:00 04/02/25 09:36 40 MG Acetaminophen/ Hydrocodone Bitart 1 tab Q6HPRN PRN PO 04/01/25 21:00 Acetaminophen 650 mg Q6HPRN PRN PO 04/01/25 21:00 Pantoprazole Sodium 40 mg DAILY IV 04/02/25 10:00 04/02/25 09:34 40 MG Albuterol 2.5 mg Q4HPRN PRN NEB 04/01/25 21:00 04/02/25 12:01 2.5 MG laboratory and microbiology Laboratory Tests 04/02/25 05:12 Test 04/02/25 05:12 Range/Units Serum Glucose 168 H 74-106 mg/dL Assessment/Plan acute ex of copd acute on chronic hypoxemic resp failure smoker emphysema seen in the ER reports improvement vs stable CXR reviewed hyperinflated lungs plan systemic steroids with taper bronchodilators abx supportive care IS dvt proph Plan discussed with: Other (rn) FRANCESCA VIERA MD Apr 02, 2025 12:32
--- NOTE | 2025-04-02 13:25 | DVHSR ---
APPROVED REPORT EXAM: Two-dimensional and M-mode echocardiogram with Doppler and color Doppler. Blood Pressure: 119/63 mmHg INDICATION Heart Failure RISK FACTORS Height: 5'5", Weight: 138 DIMENSIONS LVDd3.9 (3.8-5.7cm)LA (2D)3.9 (1.9-4.0cm)Aortic Root3.0 (2.0-3.7cm) LVDs2.7 (2.5-4.0cm)LA (MM) (1.9-4.0cm)Aortic Cusp Exc1.6 (1.5-2.0cm) EF (%) 56.0 (55-70%)Rt. Atrium5.0 (1.9-4.0cm)Asc. Aorta cm IVSd0.5 (0.7-1.1cm)RV (D)4.8 (1.8-2.4cm) PWd0.6 (0.7-1.1cm) Mitral Valve MitralMitral Stenosis E/A ratio0.02D MVAcm2 Aortic Valve Aortic ValveAortic Stenosis LVOT Diameter2.2 (1.8-2.4cm)Doppler AVAcm2 Tricuspid Valve TR Velocity3.73m/s [id number] Other Information Quality : Technically LimitedRhythm : Technically limited study due to patient position. Conclusion Left ventricle is normal in size Left ventricular systolic function is preserved Ejection fraction is estimated at 60% Right heart is severely dilated Right ventricular systolic pressure is severely depressed There is [id number] tricuspid regurgitation There is moderate to severe pulmonary hypertension estimated at 62 mmHg There is no pericardial effusion
--- NOTE | 2025-04-02 21:27 | DVHPN2 ---
Subjective Admitted overnight for COPD shortness for breath symptoms. Patient is on nasal cannula and requesting to change to face mask given he is a mouth breather. He is seen and evaluated by me earlier today. Changes from previous H/P or p: No Changes Objective Vitals Vital Signs Date Time Temp Pulse Resp B/P (MAP) Pulse Ox O2 Delivery O2 Flow Rate FiO2 04/02/25 20:00 68 04/02/25 20:00 15 100 Simple Mask* 8 60 04/02/25 19:00 113/65 (81) 04/02/25 13:45 98.3 98.3 Intake/Output Intake and Output 04/02/25 07:00 Intake Total 100 ml Balance 100 ml Intake IV Total 100 ml Exam Alert awake oriented to place and person comfortable without any significant cardiopulmonary distress. HEENT neck supple no JVD. Poor dentition. Neck supple no JVD. Heart regular rate and rhythm S1-S2. Lungs fair air movement but degraded breath sounds in the bases. End expiratory wheezing noted in the anterior chest. Abdomen soft nontender positive bowel sounds. Extremities no edema positive pulses. Medications Current Medications Medications Dose Ordered Sig/Stanley Route Start Time Stop Time Status Last Admin Dose Admin Nitroglycerin 0.4 mg Q5MINP PRN SL 04/01/25 21:00 Morphine Sulfate 2 mg Q30M PRN IV 04/01/25 21:00 Furosemide 40 mg DAILY IV 04/02/25 10:00 04/02/25 09:35 40 MG Ipratropium [place] 0.5 mg Q6HR NEB 04/02/25 00:00 04/02/25 17:55 0.5 MG Methylprednisolone Sodium Succinate 40 mg BID IV 04/01/25 22:00 04/02/25 09:35 40 MG Ceftriaxone Sodium 50 ml @ 100 mls/hr DAILY IV 04/01/25 21:42 04/02/25 09:34 100 MLS/HR Ondansetron HCl 4 mg Q6HP PRN IV 04/01/25 21:00 Enoxaparin Sodium 40 mg DAILY SC 04/02/25 10:00 04/02/25 09:36 40 MG Acetaminophen/ Hydrocodone Bitart 1 tab Q6HPRN PRN PO 04/01/25 21:00 Acetaminophen 650 mg Q6HPRN PRN PO 04/01/25 21:00 Pantoprazole Sodium 40 mg DAILY IV 04/02/25 10:00 04/02/25 09:34 40 MG Albuterol 2.5 mg Q4HPRN PRN NEB 04/01/25 21:00 04/02/25 17:55 2.5 MG Laboratory Results Laboratory Tests 04/02/25 05:12 Chemistry Test 04/01/25 21:25 04/02/25 05:12 Calcium Level 8.8 mg/dL (8.7-10.4) 9.0 mg/dL (8.7-10.4) Urinalysis Test 04/01/25 14:01 Urine Color Yellow (Yellow) Urine Clarity Clear (Clear) Urine pH 5.5 (5.0-9.0) Urine Specific [place] 1.020 (1.001-1.035) Urine Protein Trace (Negative) H Urine Ketones Negative (Negative) Urine Blood Negative /uL (Negative) Urine Nitrite Negative (Negative) Urine Bilirubin Negative (Negative) Urine Urobilinogen Normal mg/dL (Negative) Urine Leukocyte Esterase 1+ /uL (Negative) Urine RBC 2 /hpf (0 - 3) Urine Microscopic WBC 7 /HPF (0-3) H Urine Squamous Epithelial Cells None seen /hpf (<5) Urine Bacteria Few /hpf (None Seen) H Urine Mucus Few (None Seen) Urine Glucose Normal mg/dL (Normal) Blood Gas Results Test 04/02/25 08:07 Arterial Blood pH 7.378 (7.350-7.450) FiO2 % 30.0 Microbiology Microbiology Date/Time Source Procedure Growth Status 04/01/25 14:01 Voided Urine Urine Culture - Preliminary Resulted Assessment/Plan Assessment/Plan I will increase his steroids we will add inhaled steroids as well. Change his breathing treatments to q.4 hours while awake. Consider V/Q scan and a D-dimer levels given his COPD with poor activity levels. Otherwise continue rest of supportive care and treatment. Further clinical management per clinical course and recommendations from the consultants. Discussed with the patient and nurse regarding care plan. Plan discussed with: Patient, Other My Orders Orders - KAITY PICKARD MD Procedure Category Date Status Time Albuterol Medneb PHA 04/02/25 Verified (Ventolin Medneb) 22:00 Methylprednisolone PHA 04/02/25 Verified Sod Succ (Solu Medrol 22:00 Problem List: (1) Hypertensive heart disease (2) Hyperkalemia (3) CHF exacerbation (4) COPD with acute exacerbation (5) Acute hypoxic respiratory failure Date of Service: Apr 02, 2025 Billing Provider: KAITY PICKARD MD Common Visit Codes: [id number] INP/OBS CARE(MOD) KAITY PICKARD MD Apr 02, 2025 21:27
[2025-04-02] MEDS: ALBUTEROL SULF 2.5 MG/0.5ML(0.5%) NEB SOLN NEB SCH (22:39)
[2025-04-02] MEDS: BUDESONIDE (INHALATION) 0.5 MG/2 ML NEB NEB SCH (22:39)
[2025-04-02] MEDS: IPRATROPIUM BROM 0.5 MG/2.5ML INH SOL NEB SCH (22:39)
--- NOTE | 2025-04-02 22:55 | DVHINCON2 ---
DATE OF CONSULTATION: 04/02/2025 REFERRING PHYSICIAN: Pedro Castañeda MD CONSULTING PHYSICIAN: John Lozano MD INDICATION: ____. HISTORY OF PRESENT ILLNESS: Mr. Beckwith is a 74-year-old male with history of CVA, hypertension, CHF, tobacco use, who was sent to the hospital by his primary care physician after he was noted to be hypoxic in the office with oxygen saturation in the 60s-70s. Currently admitted with diagnosis of COPD exacerbation and decompensated heart failure. He has some improvement in his symptoms. The patient has not been taking his home Lasix. He denies any chest pain. PAST MEDICAL HISTORY: * Hypertension. * CHF. * COPD. * Tobacco use. MEDICATIONS: Per med rec. ALLERGIES: No known drug allergies. PHYSICAL EXAMINATION: GENERAL: Alert and awake, in no form of cardiopulmonary distress. VITAL SIGNS: Blood pressure 119/63, pulse 76 per minute, saturation 97%. HEENT: No carotid bruits. No jugular venous distention. CHEST: Bilateral air entry. CARDIOVASCULAR: Submucosal and palpable. Normal S1, S2. EXTREMITIES: Bilateral ____ edema. DIAGNOSTIC DATA: CBC is normal. Sodium 142, potassium is 4.8, creatinine is 1.8. Troponin is negative. BNP is 2313. ASSESSMENT: * Hypoxia, multifactorial. * COPD exacerbation. * Decompensated heart failure. * Pneumonia. * Hypertension. * Tobacco use. RECOMMENDATIONS: * Agree with diuresis. * Continue IV Lasix. * Continue COPD treatment. * Monitor electrolytes closely. * Monitor renal function. * We will review echo once completed. * Continue telemetry monitoring as well. Thank you for allowing me to participate in the care of this patient. MD JAKUB Farah/TONI/RACHEL/LEIF TID: [id number] RECEIPT: [id number]
[2025-04-02] MEDS: methylPREDNISolone SOD SUCC 40 MG/ML VL IV SCH (23:11)
[2025-04-02] MEDS ORDERED: ALBU108A5 INH (23:17)
[2025-04-02] MEDS ORDERED: FAMO20TA10 PO (23:17)
[2025-04-02] MEDS ORDERED: TRAZ-227 PO (23:17)
[2025-04-03] VITALS (12 sets, daily range): BP systolic 119–132; BP diastolic 57–76; PULSE 51–80; RESP 18–20; TEMP 97.5–98.9; O2SAT 92–100
[2025-04-03 07:27] LABS: Hematocrit 44.5 % (41.0-53.0); Hemoglobin 14.5 g/dL (13.5-17.5); Mean Corpuscular Hemoglobin 29.5 pg (28.0-32.0); Mean Corpuscular Volume 90.7 fL (80.0-100.0); Nucleated Red Blood Cells % 0.1 %
[2025-04-03 07:37] LABS: Potassium 4.7 mmol/L (3.5-5.1)
[2025-04-03 07:38] LABS: Anion Gap 11 (5-15); Calcium 8.9 mg/dL (8.7-10.4); Carbon Dioxide 27 mmol/L (20-31); Chloride 108 mmol/L (98-107); Sodium 146 mmol/L (136-145)
[2025-04-03 07:43] LABS: BUN/Creatinine Ratio 21.4 (10.0-20.0)
[2025-04-03 07:44] LABS: Blood Urea Nitrogen 42 mg/dL (9-23); Glucose 125 mg/dL (74-106)
[2025-04-03] MEDS ORDERED: CEFD300C2 PO (16:49)
[2025-04-03] MEDS ORDERED: PRED20TA2 PO (16:49)
[2025-04-03] MEDS ORDERED: IPRA0.00 IN (16:49)
--- NOTE | 2025-04-03 16:49 | DVHDS2 ---
Discharge Summary Date of Admission Apr 01, 2025 at 20:58 Date of Discharge: Apr 03, 2025 Labs/Diagnostic Data: Laboratory Results Test 04/03/25 05:11 04/02/25 21:38 04/02/25 08:07 04/01/25 21:14 White Blood Count 10.0 10^3/uL (4.4-10.8) Red Blood Count 4.91 10^6/uL (4.5-5.90) Hemoglobin 14.5 g/dL (13.5-17.5) Hematocrit 44.5 % (41.0-53.0) Mean Corpuscular Volume 90.7 fL (80.0-100.0) Mean Corpuscular Hemoglobin 29.5 pg (28.0-32.0) Mean Corpuscular Hemoglobin Concent 32.6 g/dL (32.0-36.0) Red Cell Distribution Width 17.1 % (11.8-14.3) Platelet Count 291 10^3/uL (140-450) Mean Platelet Volume 8.1 fL (6.9-10.8) Neutrophils (%) (Auto) 93.4 % (37.0-80.0) Lymphocytes (%) (Auto) 3.2 % (10.0-50.0) Monocytes (%) (Auto) 3.4 % (0.0-12.0) Eosinophils (%) (Auto) 0.0 % (0.0-7.0) Basophils (%) (Auto) 0.0 % (0.0-2.0) Neutrophils # (Auto) 9.3 10 ^3/uL (1.6-8.6) Lymphocytes # (Auto) 0.3 10 ^3/uL (0.4-5.4) Monocytes # (Auto) 0.3 10 ^3/uL (0-1.3) Eosinophils # (Auto) 0 10 ^3/uL (0-0.8) Basophils # (Auto) 0 10 ^3/uL (0-0.2) Nucleated Red Blood Cells 0.1 % Sodium Level 146 mmol/L (136-145) Potassium Level 4.7 mmol/L (3.5-5.1) Chloride Level 108 mmol/L (98-107) Carbon Dioxide Level 27 mmol/L (20-31) Anion Gap 11 (5-15) Blood Urea Nitrogen 42 mg/dL (9-23) Creatinine 1.96 mg/dL (0.700-1.30) Glomerular Filtration Rate Calc 35 mL/min (>90) BUN/Creatinine Ratio 21.4 (10.0-20.0) Serum Glucose 125 mg/dL (74-106) Calcium Level 8.9 mg/dL (8.7-10.4) D-Dimer, Quantitative 0.68 mg/L FEU (0.0-0.49) Blood Gas Specimen Type Arterial Blood Gas Sample Site Right radial Blood Gas Patient Temperature 37.0 Arterial Blood Date Drawn [id number] Arterial Blood pH 7.378 (7.350-7.450) Arterial Blood Partial Pressure CO2 38.9 mmHg (35.0-48.0) Arterial Blood Partial Pressure O2 64.2 mmHg (83.0-108.0) Arterial Blood HCO3 22.4 mmol/L (21.0-28.0) Arterial Blood Oxygen Saturation 92.4 % (94.0-98.0) Arterial Blood Base Excess -2.4 mmol/L (-2.0-3.0) Arterial Blood Oxyhemoglobin 89.6 % (94.0-98.0) Arterial Blood Carboxyhemoglobin 2.4 % (0.5-1.5) Arterial Blood Methemoglobin 0.6 % (0.0-1.5) Rafael Test Yes Blood Gas Total Hemoglobin 15.20 g/dL (13.5-17.5) Blood Gas Modality Mask - bipap FiO2 % 30.0 Blood Gas EPAP 5 Blood Gas IPAP 12 Blood Gas Liter Flow 3.00 Test 04/01/25 16:43 04/01/25 14:01 04/01/25 13:47 Troponin I High Sensitivity 24 ng/L (</=54) Urine Color Yellow (Yellow) Urine Clarity Clear (Clear) Urine pH 5.5 (5.0-9.0) Urine Specific [place] 1.020 (1.001-1.035) Urine Protein Trace (Negative) Urine Ketones Negative (Negative) Urine Blood Negative /uL (Negative) Urine Nitrite Negative (Negative) Urine Bilirubin Negative (Negative) Urine Urobilinogen Normal mg/dL (Negative) Urine Leukocyte Esterase 1+ /uL (Negative) Urine RBC 2 /hpf (0 - 3) Urine Microscopic WBC 7 /HPF (0-3) Urine Squamous Epithelial Cells None seen /hpf (<5) Urine Bacteria Few /hpf (None Seen) Urine Mucus Few (None Seen) Urine Glucose Normal mg/dL (Normal) B-Type Natriuretic Peptide 2313.81 pg/mL (0-100) Other Laboratory Tests 04/03/25 05:11 Brief Hx & Hospital Course: Mr. Vanessa Beckwith is a 74 yo male with known history of CHF, HTN, COPD , previous cigarette smoker who presents with shortness of breath referred from his Pulmonologists office for acute respiratory failure with hypoxia. Reported he had room air 02 saturations 60-70's. Patient reports he has not been using his oxygen at 3L [place] for the past 7 months, reports he had a cigarette couple days ago. Patient reports he does not use his oxygen concentrator because it increased his electricity bill which he could not afford. Patient denies any chest pain, nausea, vomiting, abdominal pain, headaches, dizziness, dysuria, hematuria. Patient admitted for further evaluation and treatment. Patient is admitted and evaluated by living manager. Had a echocardiogram. Also evaluated by hospice administrator. Patient received treatments with the antibiotics for his UTI COPD exacerbation/pneumonia. Overall patient is clinically stable. Patient counseled and educated regarding his heart failure. Advised to have a close follow up with the PCP and consultants as needed basis. Patient is advised to finish the antibiotics and continue other home medications per his discharge med reconciliation list. Patient verbalized understanding of his hospital diagnosis, treatment he received, discharge medications, I agree with the discharge follow-up plan of care. Operations or Procedures APPROVED REPORT EXAM: Two-dimensional and M-mode echocardiogram with Doppler and color Doppler. Blood Pressure: 119/63 mmHg INDICATION Heart Failure RISK FACTORS Height: 5'5", Weight: 138 DIMENSIONS LVDd 3.9 (3.8-5.7cm) LA (2D) 3.9 (1.9-4.0cm) Aortic Root 3.0 (2.0- 3.7cm) LVDs 2.7 (2.5-4.0cm) LA (MM) (1.9-4.0cm) Aortic Cusp Exc 1.6 (1.5- 2.0cm) EF (%) 56.0 (55-70%) Rt. Atrium 5.0 (1.9-4.0cm) Asc. Aorta cm IVSd 0.5 (0.7-1.1cm) RV (D) 4.8 (1.8-2.4cm) PWd 0.6 (0.7-1.1cm) Mitral Valve Mitral Mitral Stenosis E/A ratio 0.0 2D MVA cm2 Aortic Valve Aortic Valve Aortic Stenosis LVOT Diameter 2.2 (1.8-2.4cm) Doppler SURAJ cm2 Tricuspid Valve TR Velocity 3.73m/s RVSP 71mmHg Other Information Quality : Technically Limited Rhythm : Technically limited study due to patient position. Conclusion Left ventricle is normal in size Left ventricular systolic function is preserved Ejection fraction is estimated at 60% Right heart is severely dilated Right ventricular systolic pressure is severely depressed There is [id number] tricuspid regurgitation There is moderate to severe pulmonary hypertension estimated at 62 mmHg There is no pericardial effusion SIGNED BY: KOBY KATZ MD SIGNED DATE/TIME: 04/02/25 9576 Condition at Discharge: Stable Final Diagnosis/Problems List COPD exacerbation, acute bronchitis, UTI, acute kidney injury * Hypoxia, multifactorial. * COPD exacerbation. * Decompensated heart failure. * Pneumonia. * Hypertension. * Tobacco use. Discharge Disposition: Home Discharge Instruct/Medications Diet: Consistent carbohydrate, Cardiac 2g Na,low cholest Activity: No Restrictions, As Tolerated Follow Up/Referral: Your hospice administrator next week and follow up COPD and UTI Medications: As prescribed and home medications Scheduled Amlodipine Besylate (Amlodipine Besylate), 1 TAB PO DAILY, (Reported) Cefdinir (Cefdinir), 1 CAP PO BID Famotidine (Pepcid Tablet), 20 MG PO DAILY, (Reported) Fohzttkhnhn-Towtfpdnzfsh-Wvncx (Trelegy Ellipta 100-62.5-25 Mcg/INH), 1 AER IN DAILY, (Reported) Ipratropium-Albuterol (Ipratropium [place]/Albut), 1 KAY IN TID Prednisone (Prednisone), 20 MG PO BID Scheduled PRN Albuterol Sulfate (Albuterol Sulfate Hfa), 2 PUFF INH for SHORTNESS OF BREATH, (Reported) Trazodone Hcl (Trazodone Hcl), 0.5 TAB PO QHSP PRN for FOR INSOMNIA, (Reported) Discharge Statement: "Patient was advised to return to the ER or call 911 if any headaches, dizziness, shortness of breath, chest pain, abdominal pain, bleeding, fevers, or worsening of medical condition. Patient was counseled about treatment plan, medications, possible side effects, patientverbalized understanding. All questions were answered to the best of my ability. This discharge took greater then 30 minutes in planning, reviewing documentation, counseling the patient, and discussing with other team members." ASSESSMENT ASSESSMENT Assessment COPD exacerbation, acute bronchitis, UTI, acute kidney injury Date of Service: Apr 03, 2025 Billing Provider: KAITY PICKARD MD Common Visit Codes: 49040-PDU/OBS DISCH DAY <30MIN KAITY PICKARD MD Apr 03, 2025 16:49
--- NOTE | 2025-04-03 17:24 | DVHPN2 ---
Progress Note - Dictate Date Seen: Apr 03, 2025 Has the PT tested + for MRSA If YES, has PT been informed?: No Medical Necessity Reason Pt with a Central, PICC or Fol: No vital signs Vital Sign Date Time Temp Pulse Resp B/P (MAP) Pulse Ox O2 Delivery O2 Flow Rate FiO2 04/03/25 13:17 79 18 100 04/03/25 13:08 Nasal Cannula 3.0 04/03/25 13:08 32 04/03/25 13:00 98.7 119/70 (86) 98.7 Total Intake and Output 04/02/25 04/02/25 04/03/25 15:00 23:00 07:00 Intake Total 0 ml Balance 0 ml medications Current Medications Medications Dose Ordered Sig/Stanley Route Start Time Stop Time Status Last Admin Dose Admin Nitroglycerin 0.4 mg Q5MINP PRN SL 04/01/25 21:00 Morphine Sulfate 2 mg Q30M PRN IV 04/01/25 21:00 Ceftriaxone Sodium 50 ml @ 100 mls/hr DAILY IV 04/01/25 21:42 04/03/25 13:15 100 MLS/HR Ondansetron HCl 4 mg Q6HP PRN IV 04/01/25 21:00 Enoxaparin Sodium 40 mg DAILY SC 04/02/25 10:00 04/03/25 10:31 40 MG Acetaminophen/ Hydrocodone Bitart 1 tab Q6HPRN PRN PO 04/01/25 21:00 Acetaminophen 650 mg Q6HPRN PRN PO 04/01/25 21:00 Pantoprazole Sodium 40 mg DAILY IV 04/02/25 10:00 04/03/25 10:31 40 MG Albuterol 2.5 mg Q4HWA NEB 04/02/25 22:00 04/03/25 13:08 2.5 MG Methylprednisolone Sodium Succinate 40 mg Q6H IV 04/02/25 22:00 04/03/25 10:31 40 MG Budesonide 0.5 mg BID NEB 04/02/25 22:00 04/03/25 07:37 0.5 MG Ipratropium [place] 0.5 mg Q4HWA NEB 04/02/25 22:00 04/03/25 13:08 0.5 MG laboratory and microbiology Laboratory Tests 04/03/25 05:11 Test 04/03/25 05:11 Range/Units Serum Glucose 125 H 74-106 mg/dL Assessment/Plan acute ex of copd acute on chronic hypoxemic resp failure smoker emphysema seen in the ER events low oxygen requirements on room air no distress CXR reviewed plan systemic steroids with taper bronchodilators abx supportive care IS okay to discharfe from pulmonary standpoint dvt proph Plan discussed with: Patient FRANCESCA VIERA MD Apr 03, 2025 17:24
--- NOTE | 2025-04-05 07:38 | ECG ---
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
== END 2025-04-03 16:16 | disposition home or self-care (01) | DRG 177 ==
LOC: ER 12:45 → OVERFLOW 20:58 → TELE-WESTW 04-02 22:05
PROVIDERS: ADMIT Hospitalist; ATTEND Hospitalist
PROC: 5A09357 Assistance with Respiratory Ventilation, Less than 24 Consecutive Hours, Continuous Positive Airway Pressure (ICD-10-PCS; principal; 2025-04-02)
DX: J15.69 Pneumonia due to other Gram-negative bacteria (principal); I50.33 Acute on chronic diastolic (congestive) heart failure; J96.21 Acute and chronic respiratory failure with hypoxia; N17.0 Acute kidney failure with tubular necrosis; J44.1 Chronic obstructive pulmonary disease with (acute) exacerbation; N30.00 Acute cystitis without hematuria; J44.0 Chronic obstructive pulmonary disease with (acute) lower respiratory infection; J15.9 Unspecified bacterial pneumonia; E87.5 Hyperkalemia; J43.9 Emphysema, unspecified; I11.0 Hypertensive heart disease with heart failure; F17.210 Nicotine dependence, cigarettes, uncomplicated; J98.4 Other disorders of lung; J20.9 Acute bronchitis, unspecified; Z79.82 Long term (current) use of aspirin; Z79.899 Other long term (current) drug therapy; Z99.81 Dependence on supplemental oxygen; Z86.73 Personal history of transient ischemic attack (TIA), and cerebral infarction without residual deficits
CPT/HCPCS: 36415; 36600; 71045; 80048; 81001; 82805; 83880; 84484; 85025; 85379; 87086; 87088; 87186; 93005; 93306; 94640; 94660; 96374; 99291; G0378; J2470